=== PATIENT | male | born 1975 | race Caucasian/White ===

== ENCOUNTER 2023-01-17 16:11 | Emergency (ER) | payer OTHER, SELFPAY ==
--- NOTE | ~2023-01-17 | XR_ITS ---
EXAMINATION: XR calcaneus LT min 2V, XR calcaneus RT min 2V CLINICAL INFORMATION: Reason for Exam fall COMPARISON: Comparison is made to prior radiographs of both ankles and both feet done earlier today. TECHNIQUE: 2 views of each calcaneus. FINDINGS: Right calcaneus: Comminuted the fracture is present without any radiographic evidence of intra-articular extension. Left calcaneus: The calcaneus appear deformed without evidence of any definite cortical disruption or displacement, likely represent old posttraumatic change. Please correlate clinically. There are no prior studies available for comparison. XR/XR calcaneus LT min 2V IMPRESSION: 1. Comminuted right calcaneal fracture without any radiographic evidence of articular involvement. 2. The left calcaneus appear deformed without evidence of any cortical disruption, most consistent with old healed fracture. Please correlate clinically. There are no prior studies available at the moment for comparison.
--- NOTE | ~2023-01-17 | XR_ITS ---
EXAMINATION: BILATERAL ANKLES, BILATERAL FEET CLINICAL INFORMATION: Fall COMPARISON: None available. TECHNIQUE: 3 views each ankle, 3 views each foot FINDINGS: Right: The ankle joint appears normal without fractures dislocations or effusions. The ankle mortise appears stable. There is a comminuted fracture of the calcaneus. There is marked decrease in Boehler's angle. Left: There is marked bilateral soft tissue swelling in the left ankle small avulsion fracture arising from the medial malleolus. Some of these bony densities could be chronic but given the swelling and joint effusion and acute component is certainly suspected. An ankle joint effusion is seen. There is a decrease in Boehler's angle on the left but a calcaneal fracture is not visualized. XR/XR foot RT min 3V IMPRESSION: 1. Comminuted fracture of the right calcaneus. 2. Small avulsion fracture arising from the left medial malleolus. 3. Marked soft tissue swelling both ankles.
--- NOTE | ~2023-01-17 | XR_ITS ---
EXAMINATION: BILATERAL ANKLES, BILATERAL FEET CLINICAL INFORMATION: Fall COMPARISON: None available. TECHNIQUE: 3 views each ankle, 3 views each foot FINDINGS: Right: The ankle joint appears normal without fractures dislocations or effusions. The ankle mortise appears stable. There is a comminuted fracture of the calcaneus. There is marked decrease in Boehler's angle. Left: There is marked bilateral soft tissue swelling in the left ankle small avulsion fracture arising from the medial malleolus. Some of these bony densities could be chronic but given the swelling and joint effusion and acute component is certainly suspected. An ankle joint effusion is seen. There is a decrease in Boehler's angle on the left but a calcaneal fracture is not visualized. XR/XR ankle RT min 3V IMPRESSION: 1. Comminuted fracture of the right calcaneus. 2. Small avulsion fracture arising from the left medial malleolus. 3. Marked soft tissue swelling both ankles.
--- NOTE | ~2023-01-17 | XR_ITS ---
EXAMINATION: BILATERAL ANKLES, BILATERAL FEET CLINICAL INFORMATION: Fall COMPARISON: None available. TECHNIQUE: 3 views each ankle, 3 views each foot FINDINGS: Right: The ankle joint appears normal without fractures dislocations or effusions. The ankle mortise appears stable. There is a comminuted fracture of the calcaneus. There is marked decrease in Boehler's angle. Left: There is marked bilateral soft tissue swelling in the left ankle small avulsion fracture arising from the medial malleolus. Some of these bony densities could be chronic but given the swelling and joint effusion and acute component is certainly suspected. An ankle joint effusion is seen. There is a decrease in Boehler's angle on the left but a calcaneal fracture is not visualized. XR/XR foot LT min 3V IMPRESSION: 1. Comminuted fracture of the right calcaneus. 2. Small avulsion fracture arising from the left medial malleolus. 3. Marked soft tissue swelling both ankles.
--- NOTE | ~2023-01-17 | XR_ITS ---
EXAMINATION: BILATERAL ANKLES, BILATERAL FEET CLINICAL INFORMATION: Fall COMPARISON: None available. TECHNIQUE: 3 views each ankle, 3 views each foot FINDINGS: Right: The ankle joint appears normal without fractures dislocations or effusions. The ankle mortise appears stable. There is a comminuted fracture of the calcaneus. There is marked decrease in Boehler's angle. Left: There is marked bilateral soft tissue swelling in the left ankle small avulsion fracture arising from the medial malleolus. Some of these bony densities could be chronic but given the swelling and joint effusion and acute component is certainly suspected. An ankle joint effusion is seen. There is a decrease in Boehler's angle on the left but a calcaneal fracture is not visualized. XR/XR ankle LT min 3V IMPRESSION: 1. Comminuted fracture of the right calcaneus. 2. Small avulsion fracture arising from the left medial malleolus. 3. Marked soft tissue swelling both ankles.
--- NOTE | ~2023-01-17 | XR_ITS ---
EXAMINATION: XR calcaneus LT min 2V, XR calcaneus RT min 2V CLINICAL INFORMATION: Reason for Exam fall COMPARISON: Comparison is made to prior radiographs of both ankles and both feet done earlier today. TECHNIQUE: 2 views of each calcaneus. FINDINGS: Right calcaneus: Comminuted the fracture is present without any radiographic evidence of intra-articular extension. Left calcaneus: The calcaneus appear deformed without evidence of any definite cortical disruption or displacement, likely represent old posttraumatic change. Please correlate clinically. There are no prior studies available for comparison. XR/XR calcaneus RT min 2V IMPRESSION: 1. Comminuted right calcaneal fracture without any radiographic evidence of articular involvement. 2. The left calcaneus appear deformed without evidence of any cortical disruption, most consistent with old healed fracture. Please correlate clinically. There are no prior studies available at the moment for comparison.
[2023-01-17 16:57] VITALS: BP 136/88; PULSE 78; RESP 16; TEMP 37.2; O2SAT 98; BMI 26.6
--- NOTE | 2023-01-17 16:59 | ED.GENADULT ---
HPI - General Adult General Chief complaint: Extremity Injury, Lower Stated complaint: fell bilateral ankle pain Time Seen by Provider: 01/17/23 17:21 Source: patient, RN notes reviewed and old records reviewed History of Present Illness HPI narrative: 47-year-old male with past medical history bilateral heel fractures presenting to the ED complaining of bilateral foot and ankle pain s/p jumping from a rock to rock while on hike [employer]. States he was [place] when jumped about 3 ft onto another rock and landed incorrectly. Denies head trauma or LOC. has been nonambulatory since incident. Denies numbness, tingling, weakness, nausea/vomiting. Related Data Previous Rx's Medication Instructions Recorded acetaminophen 500 mg tablet 500 mg PO Q6H PRN fever or pain 01/17/23 (Tylenol Extra Strength) #14 tabs ibuprofen 600 mg tablet 600 mg PO Q8H PRN fever or pain 01/17/23 #20 tabs oxycodone 5 mg capsule 5 mg PO Q8H PRN pain (scale score 01/18/23 7-10) 3 days #9 caps Allergies Allergy/AdvReac Type Severity Reaction Status Date / Time No Known Allergies Allergy Verified 01/17/23 16:57 Review of Systems Review of Systems: Constitutional: No Fever, No Chills ENT/Mouth: No Ear Pain, No Nasal Congestion, No sore throat, No Rhinorrhea, No Swallowing Difficulty Cardiovascular: No Chest Pain, No SOB Respiratory: No Cough, No Sputum, No Wheezing Gastrointestinal: No Nausea, No Vomiting, No Diarrhea, No Constipation, No Abdominal pain Genitourinary: No Dysuria, No Urinary Frequency, No Urinary Incontinence/retention Musculoskeletal: +joint pain, No Myalgias, + Joint Swelling Skin: No Skin Lesions, No rash Neuro: No Weakness, No Numbness, No Paresthesias Yes all other systems are reviewed and are negative Constitutional: Constitutional: Reports as per [facility] Past Medical History Attestation statement: The following information was validated with the patient. Source: old records reviewed Social History Social History Advance Directives: No Advance Directives Information Provided: No Physical Exam ED Vital Signs: Vital Signs - 24 hr 01/17/23 16:57 Temperature 99 F Pulse Rate 78 Respiratory Rate 16 Blood Pressure 136/88 Pulse Oximetry 98 Oxygen Delivery Method Room Air BMI result Body Mass Index 26.6 Const General: cooperative, healthy appearing and no acute distress Orientation/consciousness: patient oriented x3 Limitations: no limitations HENMT Head: Yes normal to inspection and Yes atraumatic Ears: hearing grossly normal bilaterally General nose exam: Normal external nose present Face and sinus: Yes normal facial exam Eyes General: appearance normal, both eyes and all related structures EOM: EOMs intact bilaterally Neck Neck: Yes normal visual inspection and Yes no meningeal signs Resp Effort & Inspection: normal respiratory effort and no respiratory distress Cardio Rate: regular rate Peripheral pulses: Peripheral pulses 2+ throughout Back/Spine/Pelvis Other: No midline cervical/thoracic/lumbar spinous tenderness/step-off or deformity Skin Rashes: no rashes Wounds: no wounds Neuro General: patient oriented x3, tone normal and no meningeal signs Cranial nerves: Yes CN's II-XII intact bilaterally Gait exam (Neuro): Normal gait present Extrem Other: Right calcaneus with noted deformity and swelling. + Ecchymosis, + calcaneal tenderness to palpation. Otherwise foot and ankle nontender. Neurovascularly intact. No crepitus. Left ankle with noted swelling. Diffusely tender to palpation. Foot nontender. Limited ROM secondary to pain. Neurovascularly intact. Bilateral proximal tib-fib/knees nontender. Course Course Course Narrative: RME:?47 yo male presents to ED today with bilateral ankle/heel pain after jumping onto a rock while on a hike. Reports losing his balance while hiking, causing him to jump onto a rock to catch himself. Reports immediate heel and ankle pain bilaterally. Has not been able to walk since due to the pain. Admits to fracturing both heels 19 years ago. Reports chronic deformity to bilateral heels, now reporting increasing swelling since jump. No weakness/numbness/tingling of the lower extremities. PE: In wheelchair. There is edema noted to lateral malleoli bilaterally, ttp. 2+ DP/PT pulses b/l. Plan: xrays Full HPI, ROS and PE to be performed by the primary ED provider. XR foot RT min 3V/XR foot LT min 3V/XR ankle RT min 3V/XR ankle LT min 3V IMPRESSION: 1. Comminuted fracture of the right calcaneus. 2. Small avulsion fracture arising from the left medial malleolus. 3. Marked soft tissue swelling both ankles. > case discussed with ED attending, Dr. Stanford, patient denies back pain. No need for lumbar x-rays at this time. Patient offered lumbar x-rays and refused. >> Case discussed with orthopedic PA Dev, will place patient in bulky posterior splint to RLE to be non-weightbearing, and walking boot to LLE due to avulsion fracture. Patient will need outpatient CT to determine if calcaneal fracture is surgical. Patient is not from this area, is from [place], [place] Recommended close f/u with Orthopedics. Disc provided to patient w/images Results discussed with patient including worrisome signs and symptoms and strict return precautions, and when to return to the emergency department. They verbalized understanding and feel safe for discharge at this time. Medications Administered Discontinued Medications Generic Name Dose Route Start Last Admin Trade Name Freq PRN Reason Stop Dose Admin Ketorolac Tromethamine 30 mg 01/17/23 18:06 01/17/23 18:35 Ketorolac Tromethamine 30 Mg/Ml Vial IM 01/17/23 18:07 30 mg ONCE ONE Administration Medical Decision Making Medical Decision Making MDM Narrative: 47-year-old male with past medical history bilateral heel fractures presenting to the ED complaining of bilateral foot and ankle pain s/p jumping from a rock to rock while on hike [employer]. On exam vital signs stable, NAD, nontoxic appearing, physical exam as noted above. Concern for ankle/foot/calcaneal fractures versus sprain. No evidence of septic joint/arthritis. Low suspicion for ICH/back injury Plan: X-rays Please refer to course for remaining clinical decision making, interpretation of labs/imaging results, and discussions with consultants and/or family members. Differential Diagnosis Differential Diagnoses: The differential diagnosis associated with the presentation includes As above Admission/Observation Consideration of admission/observation: Escalation of care including admission/observation considered Consult Healthcare Provider Management of the patient was discussed with: Executive Coordinator (Orthopedics) Independent Interpretation I performed an independent interpretation of an: Plain X-Ray Radiology Impression Discussion of test interpretation with radiology: I have reviewed the radiologist's reading. Independent Historian Clinical information obtained from an independent historian. History obtained from or confirmed by: Friend External Record Review External record reviewed: Inpatient record, Office record, Outpatient record, Prior outpatient labs, Prior outpatient radiology, Primary care record and Outside ED record Tests considered The following testing was considered but not selected: As above Prescription Management I considered prescription management with: Pain Medication Discharge Plan Discharge Clinical Impression: Calcaneus fracture, right, Medial malleolar fracture Patient Disposition: Home, Self-Care Instructions: Ankle Fracture (DC), Calcaneal Fracture (ED) Additional Instructions: Orthopedic [facility] [place], [place] ? [facility] YOU CANNOT BEAR ANY WEIGHT ON YOUR RIGHT FOOT. PLEASE KEEP SPLINT ON DRY AND CLEAN You can bear weight on her left foot, please keep boot on, you may take off to shower. YOU NEED TO HAVE CLOSE FOLLOW-UP WITH AN DISTANCE LEARNING UNIT LEADER, [employer] DISTANCE LEARNING UNIT LEADER IN YOUR AREA, CALL YOUR PCP FOR REFERRALS/RECOMMENDATIONS THING THURSDAY MORNING Elevate your legs If toes become increasingly swollen, numb, discolored or pain is unbearable return to the ED immediately Ice Take ibuprofen and Tylenol for pain/swelling In addition take oxycodone as needed for severe pain for the next [address], drink alcohol or operate machinery while taking Prescriptions: New ibuprofen 600 mg tablet 600 mg PO Q8H PRN (Reason: fever or pain) Qty: 20 0RF acetaminophen [Tylenol Extra Strength] 500 mg tablet 500 mg PO Q6H PRN (Reason: fever or pain) Qty: 14 0RF oxycodone 5 mg capsule 5 mg PO Q8H PRN (Reason: pain (scale score 7-10)) 3 Days Qty: 9 0RF Rx Instructions: Partial Fill upon patient request. Referrals: [facility] [place] [Provider Group] - 2 days Interventions: ED Discharge Assessment Last Done: 01/17/23 20:10 Discharge Date/Time: 01/17/23 20:12
[2023-01-17] MEDS: Ketorolac Tromethamine 30 MG/ML VIAL IM (18:35)
--- NOTE | 2023-01-17 20:08 | PC.NURSE ---
Ambulation trial with crutches done by nuclear medicine tech. Pt aware he can not put any weight on left leg, boot on right. Pt has difficultly using crutches independently.
== END 2023-01-17 20:12 | disposition home or self-care (01) ==
PROVIDERS: Emergency Provider Emergency Medicine Emergency Medical Services
DX: S92.001A Unspecified fracture of right calcaneus, initial encounter for closed fracture (principal); S82.52XA Displaced fracture of medial malleolus of left tibia, initial encounter for closed fracture; X50.1XXA Overexertion from prolonged static or awkward postures, initial encounter; R60.0 Localized edema; Y93.31 Activity, mountain climbing, rock climbing and wall climbing; Y92.828 Other wilderness area as the place of occurrence of the external cause; Y99.9 Unspecified external cause status
CPT/HCPCS: 29515; 73610; 73630; 73650; 96372; 99284; J1885